=== PATIENT | female | born 1955 | race Caucasian/White ===

== ENCOUNTER 2018-05-24 06:52 | Day surgery (SDC) | payer OTHER ==
[~2018-05-24] VITALS: Ht 160 cm; Wt 95.5 kg
[2018-05-24 07:18] VITALS: BP 110/76
[2018-05-24] MEDS ORDERED: OMEP-110 PO (07:37)
[2018-05-24] MEDS ORDERED: potassium PO (07:37)
[2018-05-24] MEDS ORDERED: ALLO300T PO (07:37)
[2018-05-24] MEDS ORDERED: DAPA10TA PO (07:37)
[2018-05-24] MEDS ORDERED: LEVO150T5 PO (07:37)
[2018-05-24] MEDS ORDERED: CHOL5000 PO (07:37)
[2018-05-24] MEDS ORDERED: MAGN400T36 PO (07:37)
[2018-05-24] MEDS ORDERED: ATOR40TA PO (07:37)
[2018-05-24] MEDS ORDERED: VITA1CAP PO (07:37)
[2018-05-24] MEDS ORDERED: APIX5TAB PO (07:37)
[2018-05-24] MEDS ORDERED: DILT180C72 PO (07:37)
[2018-05-24 07:45] LABS: BASOPHILS # (AUTO) 0.03 x10^3/uL (0-0.1); BASOPHILS % (AUTO) 1 % (0-1); EOSINOPHILS # (AUTO) 0.11 x10^3/uL (0-0.4); EOSINOPHILS % (AUTO) 2 % (1-7); LYMPHOCYTES # (AUTO) 1.99 x10^3/uL (1-3.4); LYMPHOCYTES % (AUTO) 32 % (22-44); MD NO; MEAN CORPUSCULAR HEMOGLOBIN 33.8 pg (27.0-34.8); MEAN CORPUSCULAR HGB CONC 33.8 g/dL (32.4-35.8); MEAN CORPUSCULAR VOLUME 99.8 fL (80-100); MEAN PLATELET VOLUME 8.6 fL (7.4-10.4); MONOCYTES # (AUTO) 0.44 x10^3/uL (0.2-0.8); MONOCYTES % (AUTO) 7 % (2-9); NEUTROPHILS # (AUTO) 3.63 x10^3/uL (1.8-6.8); NEUTROPHILS % (AUTO) 59 % (42-75); PLATELET COUNT 237 x10^3/uL (130-400); RED BLOOD COUNT 4.32 x10^6/uL (3.82-5.3); RED CELL DISTRIBUTION WIDTH 13.7 % (9.6-15.2)
[2018-05-24 07:51] LABS: ANION GAP 9 mmol/L (5-15); CALCIUM 9.9 mg/dL (8.5-10.1); CHLORIDE 105 mmol/L (98-107); CREATININE 0.69 mg/dL (0.55-1.02)
[2018-05-24] MEDS ORDERED: SODIUM CHLORIDE FLUSH 10ML SYR IVF SCH (09:00)
[2018-05-24] MEDS ORDERED: PROPOFOL 10 MG/ML, 20ML ONE (09:41)
== END 2018-05-24 10:57 | disposition home or self-care (01) ==
LOC: CACL 06:52
PROVIDERS: ATTEND Internal Medicine Cardiovascular Disease
DX: I48.91 Unspecified atrial fibrillation (principal); F17.210 Nicotine dependence, cigarettes, uncomplicated; E03.9 Hypothyroidism, unspecified; E11.9 Type 2 diabetes mellitus without complications; E55.9 Vitamin D deficiency, unspecified; E78.2 Mixed hyperlipidemia; I10 Essential (primary) hypertension; Z72.89 Other problems related to lifestyle; Z88.0 Allergy status to penicillin; Z79.899 Other long term (current) drug therapy
CPT/HCPCS: 36415; 80048; 85025; 92960; J2704

== ENCOUNTER 2018-09-28 10:54 | Day surgery (SDC) | payer OTHER ==
[~2018-09-28] VITALS: Ht 160 cm; Wt 95.0 kg
[~2018-09-28 10:54] MED LIST: ALLO300T PO; APIX5TAB PO; ATOR40TA PO; CHOL5000 PO; DAPA10TA PO; DILT180C72 PO; LEVO150T5 PO; MAGN400T36 PO; OMEP-110 PO; VITA1CAP PO; potassium PO
[2018-09-28 11:38] VITALS: BP 114/68
[2018-09-28 11:51] LABS: BASOPHILS # (AUTO) 0.04 x10^3/uL (0-0.1); BASOPHILS % (AUTO) 1 % (0-1); EOSINOPHILS # (AUTO) 0.16 x10^3/uL (0-0.4); EOSINOPHILS % (AUTO) 2 % (1-7); LYMPHOCYTES # (AUTO) 2.73 x10^3/uL (1-3.4); LYMPHOCYTES % (AUTO) 36 % (22-44); MD NO; MEAN CORPUSCULAR HEMOGLOBIN 33.1 pg (27.0-34.8); MEAN CORPUSCULAR HGB CONC 33.2 g/dL (32.4-35.8); MEAN CORPUSCULAR VOLUME 99.6 fL (80-100); MEAN PLATELET VOLUME 9.2 fL (7.4-10.4); MONOCYTES # (AUTO) 0.45 x10^3/uL (0.2-0.8); MONOCYTES % (AUTO) 6 % (2-9); NEUTROPHILS # (AUTO) 4.33 x10^3/uL (1.8-6.8); NEUTROPHILS % (AUTO) 56 % (42-75); PLATELET COUNT 244 x10^3/uL (130-400); RED BLOOD COUNT 4.12 x10^6/uL (3.82-5.3)
[2018-09-28] MEDS ORDERED: FURO20TA3 PO (11:56)
[2018-09-28] MEDS ORDERED: SOTA80TA PO (11:56)
[2018-09-28 12:38] LABS: ANION GAP 8 mmol/L (5-15); CALCIUM 9.6 mg/dL (8.5-10.1); CHLORIDE 101 mmol/L (98-107)
[2018-09-28] MEDS ORDERED: PROPOFOL 10 MG/ML, 20ML ONE (12:53)
== END 2018-09-28 14:44 | disposition home or self-care (01) ==
LOC: CACL 10:54
PROVIDERS: ATTEND Internal Medicine Cardiovascular Disease
DX: I48.91 Unspecified atrial fibrillation (principal); I10 Essential (primary) hypertension; Z88.0 Allergy status to penicillin
CPT/HCPCS: 36415; 80048; 85025; 92960; J2704

== ENCOUNTER → 2018-12-12 | Outpatient (CLI) | payer OTHER ==
[~2018-12-12] MED LIST changes: +ACET325T26 PO; +DAPA1TAB6 PO; +FURO20TA3 PO; +LEVO175T5 PO; +OMNIPAQUE 350 MG/ML, 150 ML BOTTLE ONE; +OXYC-302 PO; +SOTA80TA PO
== END | disposition home or self-care (01) ==
LOC: CFH 09:38
PROVIDERS: ATTEND Internal Medicine Cardiovascular Disease
DX: I48.91 Unspecified atrial fibrillation (principal); I25.10 Atherosclerotic heart disease of native coronary artery without angina pectoris; I10 Essential (primary) hypertension; E11.9 Type 2 diabetes mellitus without complications; I05.9 Rheumatic mitral valve disease, unspecified; Z88.0 Allergy status to penicillin
CPT/HCPCS: 71046; 75572; Q9967

== ENCOUNTER 2018-12-15 06:08 | Inpatient (IN) | payer OTHER ==
[2018-12-12 11:42] VITALS: BP 127/69
[2018-12-12 12:04] LABS: BASOPHILS # (AUTO) 0.03 x10^3/uL (0-0.1); BASOPHILS % (AUTO) 0 % (0-1); EOSINOPHILS % (AUTO) 1 % (1-7); LYMPHOCYTES # (AUTO) 1.97 x10^3/uL (1-3.4); LYMPHOCYTES % (AUTO) 26 % (22-44); MD NO; MEAN CORPUSCULAR HEMOGLOBIN 33.2 pg (27.0-34.8); MEAN CORPUSCULAR HGB CONC 32.8 g/dL (32.4-35.8); MEAN CORPUSCULAR VOLUME 101.2 fL (80-100); MEAN PLATELET VOLUME 8.5 fL (7.4-10.4); MONOCYTES % (AUTO) 7 % (2-9); NEUTROPHILS # (AUTO) 5.13 x10^3/uL (1.8-6.8); NEUTROPHILS % (AUTO) 66 % (42-75); PLATELET COUNT 202 x10^3/uL (130-400); RED BLOOD COUNT 4.01 x10^6/uL (3.82-5.3); RED CELL DISTRIBUTION WIDTH 14.9 % (9.6-15.2)
[2018-12-12 12:12] LABS: INTERNATIONAL NORMALIZED RATIO 1.23 (0.93-1.1); PROTHROMBIN TIME 12.8 Seconds (9.6-11.5)
[2018-12-12 12:24] LABS: ALBUMIN 3.9 g/dL (3.4-5.0); ANION GAP 7 mmol/L (5-15); CALCIUM 9.7 mg/dL (8.5-10.1); CHLORIDE 102 mmol/L (98-107)
[2018-12-12 12:28] LABS: ALANINE AMINOTRANSFERASE 114 U/L (12-78); ALKALINE PHOSPHATASE 131 U/L (45-117); BILIRUBIN,TOTAL 0.8 mg/dL (0.2-1.0); CREATININE 0.74 mg/dL (0.55-1.02); TOTAL PROTEIN 7.7 g/dL (6.4-8.2)
[~2018-12-15] VITALS: Ht 160 cm; Wt 100.5 kg
[~2018-12-15 06:08] MED LIST changes: -ACET325T26 PO; -OMNIPAQUE 350 MG/ML, 150 ML BOTTLE ONE; -OXYC-302 PO
[2018-12-15] MEDS ORDERED: SODIUM CHLORIDE 0.9% 1,000 ML IV SCH ×2 (06:23→06:30)
[2018-12-15] MEDS ORDERED: LIDOCAINE 1%, 20ML ONE (06:57)
[2018-12-15] MEDS ORDERED: MIDAZOLAM 1 MG/ML, 2ML ONE (08:47)
[2018-12-15] MEDS ORDERED: FENTANYL PF 250 MCG/5ML ONE (08:47)
[2018-12-15] MEDS ORDERED: PROPOFOL 50 ML ONE (08:47)
[2018-12-15] MEDS ORDERED: GLYCOPYRROLATE 0.2MG/1ML, 5ML ONE (08:54)
[2018-12-15] MEDS ORDERED: EPINEPHRINE 1 MG/ML, 1ML ONE (08:54)
[2018-12-15] MEDS ORDERED: ROCURONIUM 10MG/ML,5ML ONE (09:50)
[2018-12-15] MEDS ORDERED: DEXAMETHASONE 4 MG/ML, 1ML ONE (09:51)
[2018-12-15] MEDS ORDERED: SUCCINYLCHOLINE 20 MG/ML, 10ML ONE (09:51)
[2018-12-15] MEDS ORDERED: HEPARIN 1,000 UNITS/ML, 10ML ONE ×2 (09:51)
[2018-12-15] MEDS ORDERED: ONDANSETRON 2MG/ML, 2ML ONE (09:51)
[2018-12-15] MEDS ORDERED: ALBUTEROL/IPRATROPIUM 2.5MG/0.5MG, 3 ML NPPB PRN (12:30)
[2018-12-15] MEDS ORDERED: ONDANSETRON 2MG/ML, 2ML IV PRN (12:30)
[2018-12-15] MEDS ORDERED: DIAZEPAM 5 MG/ML, 2ML IVPush PRN (12:30)
[2018-12-15] MEDS ORDERED: DIPHENHYDRAMINE 50 MG/ML, 1ML IVPush PRN (12:30)
[2018-12-15] MEDS ORDERED: ONDANSETRON ODT 8 MG PO PRN (12:30)
[2018-12-15] MEDS ORDERED: MIDAZOLAM 1 MG/ML, 2ML IV PRN (12:30)
[2018-12-15] MEDS ORDERED: MEPERIDINE/PF 25MG/0.5ML IVPush PRN (12:30)
[2018-12-15] MEDS ORDERED: ACETAMINOPHEN 325 MG TABLET PO PRN (12:30)
[2018-12-15] MEDS ORDERED: OXYcodone 5 MG/5 ML ORAL.SOL UDC PO PRN (12:30)
[2018-12-15] MEDS ORDERED: PROMETHAZINE 25 MG/ML, 1ML IV PRN (12:30)
[2018-12-15] MEDS ORDERED: MORPHINE SULFATE 4 MG/ML, 1ML IVPush PRN (12:30)
[2018-12-15] MEDS ORDERED: EPHEDRINE 50 MG/ML, 1ML IM PRN (12:30)
[2018-12-15] MEDS: LEVOTHYROXINE 175 MCG TABLET PO SCH (13:00)
[2018-12-15] MEDS ORDERED: FUROSEMIDE 20 MG TABLET PO PRN (13:00)
[2018-12-15] MEDS: EPHEDRINE 50 MG/ML, 1ML IVPush PRN ×2 (13:12→13:41)
[2018-12-15] MEDS ORDERED: FENTANYL PF 100 MCG/2ML ONE (13:24)
[2018-12-15] MEDS ORDERED: EPHEDRINE 50 MG/ML, 1ML ONE (13:24)
[2018-12-15] MEDS: FENTANYL PF 100 MCG/2ML IV PRN ×2 (13:31→13:41)
[2018-12-15] MEDS ORDERED: OXYcodone 5 MG/5 ML ORAL.SOL UDC ONE (13:43)
[2018-12-15] MEDS: APIXABAN 5 MG TABLET PO SCH (20:23)
[2018-12-16 04:00] VITALS: BP 122/62
[2018-12-16] MEDS: LEVOTHYROXINE 175 MCG TABLET PO SCH (06:20)
[2018-12-16 06:41] LABS: ANION GAP 9 mmol/L (5-15); CALCIUM 9.1 mg/dL (8.5-10.1); CHLORIDE 104 mmol/L (98-107); CREATININE 1.03 mg/dL (0.55-1.02)
[2018-12-16] MEDS: ATORVASTATIN 40 MG TABLET PO SCH (09:00)
[2018-12-16] MEDS: MAGNESIUM OXIDE 400 MG TABLET PO SCH (09:00)
[2018-12-16] MEDS: SAXAGLIPTIN PO SCH (09:00)
[2018-12-16] MEDS: CHOLECALCIFEROL 1,000 UNIT TABLET PO SCH (09:00)
[2018-12-16] MEDS: DAPAGLIFLOZIN PO SCH (09:00)
[2018-12-16] MEDS: APIXABAN 5 MG TABLET PO SCH ×2 (09:00→20:19)
[2018-12-16] MEDS: ALLOPURINOL 300 MG TABLET PO SCH (09:00)
[2018-12-16] MEDS: OMEPRAZOLE 20 MG CAPSULE.DR PO SCH (09:00)
[2018-12-16] MEDS: INSULIN LISPRO 100 UNITS/ML, PEN SQ-INSULIN SCH ×3 (11:18→20:31)
[2018-12-16] MEDS ORDERED: MIDAZOLAM 1 MG/ML, 5ML ONE (14:27)
[2018-12-16] MEDS ORDERED: LIDOCAINE 2%, 20ML ONE (14:27)
[2018-12-16] MEDS ORDERED: FENTANYL PF 100 MCG/2ML ONE (14:27)
[2018-12-16] MEDS ORDERED: VANCOMYCIN 500 MG ONE (14:27)
[2018-12-16] MEDS ORDERED: VANCOMYCIN PMX 1GM/200ML 200 ML ONE (14:28)
[2018-12-16] MEDS ORDERED: HOLD MEDICATION MC PRN (16:00)
[2018-12-16] MEDS ORDERED: ACETAMINOPHEN 325 MG TABLET PO PRN (16:00)
[2018-12-16] MEDS: SOTALOL 80MG TABLET PO SCH ×2 (17:32→17:34)
[2018-12-16] MEDS: ACETAMINOPHEN 325 MG TABLET PO PRN ×2 (17:32→21:31)
[2018-12-16 19:53] VITALS: BP 126/60
[2018-12-16] MEDS: SODIUM CHLORIDE FLUSH 10ML SYR IVF SCH (20:24)
[2018-12-16] MEDS: OXYcodone IR 5MG TABLET PO PRN (22:58)
[2018-12-16] MEDS ORDERED: ONDANSETRON 2MG/ML, 2ML IVPush PRN (23:00)
[2018-12-16] MEDS ORDERED: ONDANSETRON ODT 4 MG PO PRN (23:00)
[2018-12-17 00:42] VITALS: BP 137/77
[2018-12-17] MEDS ORDERED: VANCOMYCIN PMX 1GM/200ML 200 ML IVPB ONE (02:30)
[2018-12-17] MEDS: OXYcodone IR 5MG TABLET PO PRN (03:28)
[2018-12-17] MEDS: ACETAMINOPHEN 325 MG TABLET PO PRN ×2 (03:28→09:27)
[2018-12-17] MEDS ORDERED: LEVOTHYROXINE 100 MCG TABLET ONE (03:53)
[2018-12-17] MEDS ORDERED: LEVOTHYROXINE 75 MCG TABLET ONE (03:53)
[2018-12-17 04:38] LABS: ALBUMIN 3.8 g/dL (3.4-5.0); ANION GAP 8 mmol/L (5-15); CHLORIDE 102 mmol/L (98-107)
[2018-12-17 04:42] LABS: ALANINE AMINOTRANSFERASE 50 U/L (12-78); ALKALINE PHOSPHATASE 107 U/L (45-117); BILIRUBIN,TOTAL 0.9 mg/dL (0.2-1.0); CREATININE 0.78 mg/dL (0.55-1.02); TOTAL PROTEIN 7.4 g/dL (6.4-8.2)
[2018-12-17] MEDS: SOTALOL 80MG TABLET PO SCH ×2 (06:01→10:57)
[2018-12-17] MEDS: LEVOTHYROXINE 175 MCG TABLET PO SCH (06:02)
[2018-12-17 07:15] VITALS: BP_SYST 129; BP_SYST 170; BP_DIAS 75; BP_DIAS 76
[2018-12-17] MEDS: APIXABAN 5 MG TABLET PO SCH (07:40)
[2018-12-17] MEDS ORDERED: GLIPizide ER 2.5 MG TABLET PO SCH (08:00)
[2018-12-17] MEDS: DAPAGLIFLOZIN PO SCH (09:00)
[2018-12-17] MEDS: SAXAGLIPTIN PO SCH (09:00)
[2018-12-17] MEDS: SODIUM CHLORIDE FLUSH 10ML SYR IVF SCH (09:00)
[2018-12-17] MEDS ORDERED: ACET325T26 PO (09:07)
[2018-12-17] MEDS: INSULIN LISPRO 100 UNITS/ML, PEN SQ-INSULIN SCH ×2 (09:26→11:01)
[2018-12-17] MEDS: ALLOPURINOL 300 MG TABLET PO SCH (09:27)
[2018-12-17] MEDS: OMEPRAZOLE 20 MG CAPSULE.DR PO SCH (09:27)
[2018-12-17] MEDS: CHOLECALCIFEROL 1,000 UNIT TABLET PO SCH (09:27)
[2018-12-17] MEDS: MAGNESIUM OXIDE 400 MG TABLET PO SCH (09:27)
[2018-12-17] MEDS: ATORVASTATIN 40 MG TABLET PO SCH (09:28)
[2018-12-17] MEDS ORDERED: OXYC-302 PO (09:48)
[2018-12-17] MEDS ORDERED: KETOROLAC 30 MG/1 ML IVPush ONE (10:00)
== END 2018-12-17 13:58 | disposition home or self-care (01) | DRG 243 ==
LOC: CACL 06:08 → ORIP 12:53 → CCU 14:13 → 5SO 12-16 15:57
PROVIDERS: ADMIT Internal Medicine Cardiovascular Disease; ATTEND Internal Medicine Cardiovascular Disease
PROC: 02583ZZ Destruction of Conduction Mechanism, Percutaneous Approach (ICD-10-PCS; 2018-12-15)
PROC: 4A023FZ Measurement of Cardiac Rhythm, Percutaneous Approach (ICD-10-PCS; 2018-12-15)
PROC: 4A0234Z Measurement of Cardiac Electrical Activity, Percutaneous Approach (ICD-10-PCS; 2018-12-15)
PROC: 02K83ZZ Map Conduction Mechanism, Percutaneous Approach (ICD-10-PCS; 2018-12-15)
PROC: 03HY32Z Insertion of Monitoring Device into Upper Artery, Percutaneous Approach (ICD-10-PCS; 2018-12-15)
PROC: 0JH606Z Insertion of Pacemaker, Dual Chamber into Chest Subcutaneous Tissue and Fascia, Open Approach (ICD-10-PCS; principal; 2018-12-16)
PROC: 02H63JZ Insertion of Pacemaker Lead into Right Atrium, Percutaneous Approach (ICD-10-PCS; 2018-12-16)
PROC: 02HK3JZ Insertion of Pacemaker Lead into Right Ventricle, Percutaneous Approach (ICD-10-PCS; 2018-12-16)
DX: I49.5 Sick sinus syndrome (principal); D68.69 Other thrombophilia; I48.92 Unspecified atrial flutter; I48.91 Unspecified atrial fibrillation; I10 Essential (primary) hypertension; E78.5 Hyperlipidemia, unspecified; E11.9 Type 2 diabetes mellitus without complications; E03.9 Hypothyroidism, unspecified; Z79.01 Long term (current) use of anticoagulants; Z87.891 Personal history of nicotine dependence
CPT/HCPCS: 33208; 36415; J3490; 71045; 80048; 80053; 82962; 85025; 85347; 85610; 85730; 87081; 93005; 93306; 93312; 93321; 93325; 93613; 93655; 93656; 93657; 93662; 99156; 99157; C1731; C1766; C1779; C1785; C1892; C1893; C1894; G0378; J0171; J1100; J1644; J2250; J2405; J2704; J3010; J3370; Q0162; C1730; C1759; J0330; J1815

== ENCOUNTER 2018-12-29 07:46 | Day surgery (SDC) | payer OTHER ==
[~2018-12-29] VITALS: Ht 160 cm; Wt 93.2 kg
[~2018-12-29 07:46] MED LIST changes: +ACET325T26 PO; +OXYC-302 PO
[2018-12-29 08:18] VITALS: BP 137/82
[2018-12-29 08:26] LABS: BASOPHILS # (AUTO) 0.04 x10^3/uL (0-0.1); BASOPHILS % (AUTO) 1 % (0-1); EOSINOPHILS # (AUTO) 0.13 x10^3/uL (0-0.4); EOSINOPHILS % (AUTO) 2 % (1-7); LYMPHOCYTES # (AUTO) 1.73 x10^3/uL (1-3.4); LYMPHOCYTES % (AUTO) 22 % (22-44); MD NO; MEAN CORPUSCULAR HEMOGLOBIN 32.4 pg (27.0-34.8); MEAN CORPUSCULAR HGB CONC 33.1 g/dL (32.4-35.8); MEAN PLATELET VOLUME 7.8 fL (7.4-10.4); MONOCYTES # (AUTO) 0.69 x10^3/uL (0.2-0.8); MONOCYTES % (AUTO) 9 % (2-9); NEUTROPHILS # (AUTO) 5.42 x10^3/uL (1.8-6.8); NEUTROPHILS % (AUTO) 68 % (42-75); PLATELET COUNT 327 x10^3/uL (130-400); RED BLOOD COUNT 4.18 x10^6/uL (3.82-5.3); RED CELL DISTRIBUTION WIDTH 14.7 % (9.6-15.2)
[2018-12-29 08:36] LABS: ANION GAP 7 mmol/L (5-15); CALCIUM 10.2 mg/dL (8.5-10.1); CHLORIDE 102 mmol/L (98-107); CREATININE 0.71 mg/dL (0.55-1.02)
[2018-12-29] MEDS ORDERED: PROPOFOL 10 MG/ML, 20ML ONE (09:05)
== END 2018-12-29 11:20 | disposition home or self-care (01) ==
LOC: CACL 07:46
PROVIDERS: ATTEND Internal Medicine Cardiovascular Disease
DX: I48.91 Unspecified atrial fibrillation (principal); I48.92 Unspecified atrial flutter; I10 Essential (primary) hypertension; E11.9 Type 2 diabetes mellitus without complications; F17.210 Nicotine dependence, cigarettes, uncomplicated; E66.3 Overweight; Z68.35 Body mass index [BMI] 35.0-35.9, adult; Z95.0 Presence of cardiac pacemaker; Z79.84 Long term (current) use of oral hypoglycemic drugs; Z79.890 Hormone replacement therapy; Z79.01 Long term (current) use of anticoagulants; Z79.899 Other long term (current) drug therapy; Z88.0 Allergy status to penicillin
CPT/HCPCS: 36415; 80048; 85025; 92960; J2704